=== PATIENT | male | born 1940 | race Two or more races ===

== ENCOUNTER 2022-06-23 08:31 | Day surgery (SDC) | payer MEDICARE, OTHER ==
[2022-06-16 14:26] LABS: INR 0.97 (0.9-1.15); Partial Thromboplastin Time 27.3 sec (24.6-33.4)
[2022-06-16 14:29] LABS: Urine Bacteria FEW /hpf (None Seen); Urine Blood Negative /uL (Negative); Urine Specific Gravity 1.035 (1.001-1.035); Urine WBC 2 /hpf (0 - 3)
[2022-06-16 14:40] LABS: Basophils # (auto) 0.1 10 ^3/uL (0-0.2); Basophils % (auto) 0.9 % (0.0-2.0); Eosinophils # (auto) 0.3 10 ^3/uL (0-0.8); Eosinophils % (auto) 3.5 % (0.0-7.0); Hematocrit 45.7 % (41.0-53.0); Hemoglobin 15.1 g/dL (13.5-17.5); Lymphocytes # (auto) 2.1 10 ^3/uL (0.4-5.4); Lymphocytes % (auto) 24.2 % (10.0-50.0); Mean Corpuscular Hemoglobin 29.1 pg (28.0-32.0); Mean Corpuscular Hgb Conc. 33.1 g/dL (32.0-36.0); Mean Corpuscular Volume 87.8 fL (80.0-100.0); Monocytes # (auto) 0.9 10 ^3/uL (0-1.3); Monocytes % (auto) 9.9 % (0.0-12.0); Neutrophils # (auto) 5.3 10 ^3/uL (1.6-8.6); Neutrophils % (auto) 61.5 % (37.0-80.0); Nucleated Red Blood Cells % 0.2 %; Red Blood Cells 5.21 10^6/uL (4.5-5.90); Red Cell Distribution Width 13.6 % (11.8-14.3); White Blood Cell 8.7 10^3/uL (4.4-10.8)
[2022-06-16 18:29] LABS: Alanine Aminotransferase 40 U/L (16-61); Alkaline Phosphatase 169 U/L (45-117); Anion Gap 3 (5-15); Aspartate Aminotransferase 26 U/L (15-37); BUN/Creatinine Ratio 22.7; Bilirubin, Total 0.4 mg/dL (0.2-1.0); Blood Urea Nitrogen 17 mg/dL (7-18); Carbon Dioxide 27 mmol/L (21-32); Chloride 109 mmol/L (98-107); GFR African American 129 mL/min; GFR Non-African American 107 mL/min; Glucose 236 mg/dL (74-106); Potassium 4.8 mmol/L (3.5-5.1); Sodium 139 mmol/L (136-145)
[2022-06-16 18:30] LABS: Albumin 3.6 g/dL (3.4-5.0); Total Protein 7.5 g/dL (6.4-8.2)
[~2022-06-23] VITALS: Ht 172.7 cm; Wt 70.3 kg
[~2022-06-23 08:31] MED LIST: ASPI-543 PO; ATOR-47 PO; BENA5TAB9 PO; CARV12.544 PO; MONT-8 PO; RIVA20TA PO; SITA50TA28 PO; SULI200T5 PO
[2022-06-23] MEDS ORDERED: CIPROFLOXACIN 400MG/200ML 0 ML IV ONE (08:56)
[2022-06-23] MEDS ORDERED: ceFAZolin 1GM/50ML 100 ML IV ONE (10:35)
[2022-06-23] MEDS ORDERED: fentaNYL CITRATE 100 MCG/2 ML VL ONE (13:47)
[2022-06-23] MEDS ORDERED: MIDAZOLAM HCL 2MG/2ML 2ml VIAL (1mg/ml) ONE (13:48)
[2022-06-23] MEDS ORDERED: PROPOFOL 10 MG/ML 20 ML IV ONE (14:11)
[2022-06-23] MEDS ORDERED: ONDANSETRON HCL 4 MG/2 ML VIAL IV PRN (14:15)
[2022-06-23] MEDS ORDERED: ONDANSETRON HCL 4 MG/2 ML VIAL ONE (14:53)
[2022-06-23] MEDS: HYDROmorphone HCL 2 MG/ML VL/or syr IV PRN ×4 (15:40→16:10)
[2022-06-23 16:10] VITALS: BP 155/84
== END 2022-06-23 16:36 | disposition home or self-care (01) ==
LOC: SUR 08:31
PROVIDERS: ATTEND Urology
DX: N40.1 Benign prostatic hyperplasia with lower urinary tract symptoms (principal); N47.1 Phimosis; I10 Essential (primary) hypertension; I25.10 Atherosclerotic heart disease of native coronary artery without angina pectoris; I11.0 Hypertensive heart disease with heart failure; I50.9 Heart failure, unspecified; I25.2 Old myocardial infarction; E11.9 Type 2 diabetes mellitus without complications; E78.5 Hyperlipidemia, unspecified; Z95.810 Presence of automatic (implantable) cardiac defibrillator; Z95.5 Presence of coronary angioplasty implant and graft; Z20.822 Contact with and (suspected) exposure to COVID-19
CPT/HCPCS: 36415; 52649; 54161; 80053; 81001; 82962; 85025; 85610; 85730; J0690; J1170; J2250; J2405; J2704; J3010; U0003